=== PATIENT | female | born 1935 | race Caucasian/White ===

== ENCOUNTER → 2023-11-01 | Day surgery (SDC) | payer MEDICARE, OTHER ==
[2023-11-01 12:43] VITALS: BP 148/55; PULSE 78
[2023-11-01] MEDS: Lidocaine 1% 30 ML SDV SUBCUT ONE (14:33)
== END ==
LOC: CC.SDS 11:55
PROVIDERS: ATTEND Family Medicine
DX: I83.812 Varicose veins of left lower extremity with pain (principal); I87.2 Venous insufficiency (chronic) (peripheral); I11.0 Hypertensive heart disease with heart failure; I50.9 Heart failure, unspecified; E03.9 Hypothyroidism, unspecified; E78.5 Hyperlipidemia, unspecified; Z79.890 Hormone replacement therapy; Z79.899 Other long term (current) drug therapy; Z91.041 Radiographic dye allergy status; Z88.8 Allergy status to other drugs, medicaments and biological substances
CPT/HCPCS: C1888; J3490